=== PATIENT | female | born 1945 | race Caucasian/White ===

== ENCOUNTER 2017-03-01 13:16 | Inpatient (IN) ==
[2017-03-01] MEDS ORDERED: ASPIRIN PO STA (14:02)
[2017-03-01] MEDS ORDERED: NORCO-7.5 PO ONE (14:04)
--- NOTE | 2017-03-01 14:21 | Diag Imaging Result Doc PS360 ---
EXAM: CHEST-PORTABLE HISTORY: sob TECHNIQUE: Portable upright AP COMPARISON: None. FINDINGS: The lungs are well expanded. The heart is not enlarged. The vessels are not distended. No pneumonia. No pleural effusions identified. There is a granuloma in the mid right lung. IMPRESSION: Negative chest Electronically signed by Scott Su 03/01/2017 2:18 PM
[2017-03-01 14:34] LABS: MANUAL DIFF NEEDED? NO
[2017-03-01 14:38] LABS: BASO% 0.3 % (0.0-0.8); EOS# 0.39 X1000 (0.0-0.7); EOS% 5.5 % (0.0-10.0); HEMATOCRIT 37.7 % (37.0-47.0); HEMOGLOBIN 11.7 g/dL (12.0-16.0); LYMPH# 1.19 X1000 (1.2-3.4); LYMPH% 16.7 % (20.5-51.1); MCH 23.8 PG (27-31); MCV 76.8 FL (81-99); MPV 10.5 FL (7.4-10.4); NEUT% 70.5 % (42.2-75.2); PLT 277 X1000 (130-400); RBC 4.91 XMIL (4.2-5.4)
[2017-03-01 14:45] LABS: INR 1.06; PROTIME 11.2 Seconds (9.2-11.7); PTT 25.3 Seconds (22.0-36.0)
[2017-03-01 15:10] LABS: ALBUMIN 4.1 g/dL (3.5-5.0); CALCIUM 10.2 mg/dL (8.8-10.2); MAGNESIUM 1.6 mg/dL (1.5-2.7); POTASSIUM 3.2 mmol/L (3.5-5.1); TOTAL BILIRUBIN 0.38 mg/dL (0.20-1.00); TOTAL PROTEIN 7.2 g/dL (6.3-8.3)
[2017-03-01] MEDS ORDERED: ZOFRAN IV PRN (18:03)
[2017-03-01] MEDS ORDERED: HEPARIN 25,000 UNITS/D5W 25,000 UNIT/250 ML IV.SOLN IV SCH ×3 (18:03→23:15)
[2017-03-01] MEDS ORDERED: HEPARIN IV PRN (18:03)
[2017-03-01] MEDS ORDERED: HEPARIN IV ONE (18:15)
[2017-03-01] MEDS: NS 1,000 ML IV SCH (18:45)
[2017-03-01] MEDS: CARDIZEM CD PO SCH (20:52)
[2017-03-01] MEDS: ATIVAN PO SCH (20:52)
[2017-03-01] MEDS: LOPRESSOR PO SCH (20:53)
[2017-03-01 22:49] LABS: INR 1.04
[2017-03-01 22:56] LABS: PTT 44.3 Seconds (22.0-36.0)
[2017-03-02 04:24] LABS: MANUAL DIFF NEEDED? NO
[2017-03-02 04:27] LABS: BASO% 0.5 % (0.0-0.8); EOS# 0.38 X1000 (0.0-0.7); EOS% 6.1 % (0.0-10.0); HEMATOCRIT 34.4 % (37.0-47.0); HEMOGLOBIN 10.6 g/dL (12.0-16.0); LYMPH# 1.49 X1000 (1.2-3.4); MCH 23.9 PG (27-31); MCHC 30.8 g/dL (33-37); MCV 77.5 FL (81-99); MONO# 0.39 X1000 (0.11-0.59); MONO% 6.3 % (1.7-9.3); NEUT% 63.1 % (42.2-75.2); PLT 263 X1000 (130-400); RBC 4.44 XMIL (4.2-5.4)
[2017-03-02 04:46] LABS: ALBUMIN 3.6 g/dL (3.5-5.0); CALCIUM 9.2 mg/dL (8.8-10.2); MAGNESIUM 1.6 mg/dL (1.5-2.7); TOTAL BILIRUBIN 0.35 mg/dL (0.20-1.00); TOTAL PROTEIN 6.4 g/dL (6.3-8.3)
[2017-03-02] MEDS ORDERED: HEPARIN IV ONE (05:12)
--- NOTE | 2017-03-02 05:18 | EKG Report ---
Test Performed on : 03/01/2017 6:17:34 PM Test Reason : Chest Pain Blood Pressure : / mmHG Vent. Rate : 067 BPM Atrial Rate : 067 BPM P-R Int : 176 ms QRS Dur : 084 ms QT Int : 434 ms P-R-T Axes : 016 -07 -10 degrees QTc Int : 458 ms Normal sinus rhythm. Minimal voltage criteria for LVH, may be normal variant ST \T\ T wave abnormality, consider anterior ischemia Abnormal ECG No previous ECGs available Unconfirmed Result
[2017-03-02] MEDS: HEPARIN 25,000 UNITS/D5W 25,000 UNIT/250 ML IV.SOLN IV SCH ×3 (05:35→22:48)
[2017-03-02] MEDS: NS 1,000 ML IV SCH ×4 (05:42→22:25)
[2017-03-02] MEDS: PRILOSEC PO SCH (05:59)
--- NOTE | 2017-03-02 09:20 | Diag Imaging Result Doc PS360 ---
EXAM: CT ANGIOGRAM/AORTA W/RUNOFF HISTORY: left foot ischemia TECHNIQUE: CT angiogram of the abdominal aorta with runoff, with contrast, and reduced radiation dose applied. 3-D MIPS. COMMENT: There are no previous studies available for comparison. There is a large hiatal hernia. Some atelectasis or fibrosis is present in the left lower lobe. The liver is somewhat hypodense suggesting fatty change. The renal arteries are patent bilaterally. There is apparently a very small accessory renal artery on the left. There is slight dilatation of the infrarenal abdominal aorta to a maximum AP diameter of 2.5 cm. There is slight dilatation of the common iliacs with the right measuring almost 1.5 cm in diameter and the left over 13 mm. There is diverticulosis throughout the sigmoid colon without evidence of diverticulitis. No abnormal fluid collections are present and there is no evidence of bowel obstruction. There are spondylotic changes throughout the lumbar spine. There is moderate to severe spinal stenosis present at the L4-5 level. There may be bilateral foraminal stenosis at L5-S1. The superior mesenteric and celiac arteries are widely patent. The inferior mesenteric artery is patent. There is dilatation of the internal iliac artery on the right side to over 11 mm. This is probably due to the stenosis at its origin. The external iliac arteries are patent bilaterally. Some detail in the popliteal artery on the right is obscured by knee arthroplasty prosthesis. There is significant stenosis just above the left knee in the proximal popliteal artery. There is poor apparent runoff in the left calf beyond the tibioperoneal trunk and there is occlusion of the anterior tibial artery proximally. Considerable collateral flow is seen on the medial side of the proximal calf on the right. There is flow seen in three vessels to the mid calf with very poor runoff beyond this point. No contrast opacification is demonstrated to to any extent on the axial images and either posterior tibial artery. IMPRESSION: 1. Hiatal hernia. 2. Minimal abdominal aortic aneurysm. 3. 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 4. 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 5. Poor distal runoff in the cast particularly on the left. 6. Spinal stenosis at L4-5. Electronically signed by Montez Sorto 03/02/2017 9:17 AM
[2017-03-02] MEDS: HYDROXYZINE PO SCH (09:32)
[2017-03-02] MEDS: HYDROCHLOROTHIAZIDE PO SCH (09:32)
[2017-03-02] MEDS: CARDIZEM CD PO SCH ×2 (09:32→22:25)
[2017-03-02] MEDS: REQUIP PO SCH (09:32)
[2017-03-02] MEDS: LOPRESSOR PO SCH ×2 (09:32→22:25)
[2017-03-02] MEDS: ATIVAN PO SCH ×2 (09:32→22:25)
[2017-03-02] MEDS: PAXIL PO SCH (09:33)
[2017-03-02] MEDS: ZANAFLEX PO SCH (09:33)
--- NOTE | 2017-03-02 16:08 | ECHO REPORT ---
ORDER DATE: 03/01/2017 INDICATION: Left lower leg ischemia. Hypertension. Atrial fibrillation. FINDINGS: 1. Right atrium is mildly enlarged at 4.6 cm. 2. Mild tricuspid regurgitation. RV systolic pressure of 45. 3. Normal RV size and systolic function. 4. Mild pulmonic insufficiency. 5. Severe left atrial enlargement with a left atrial volume index of 40. 6. No mitral valve prolapse. Mild mitral regurgitation. 7. Normal LV size, end-diastolic dimension of 5.1. Normal wall thicknesses with a posterior and interventricular septal thickness 1 cm each. Normal LV systolic function. Calculated EF of 67% with normal wall motion. 8. The aortic valve opens well. It is trileaflet. No evidence of stenosis or insufficiency. 9. The aorta appears normal in visualized segments. 10. No pericardial effusion seen. cc: MD Josse Perales MD
[2017-03-02] MEDS: TYLENOL PO PRN (22:25)
[2017-03-03] MEDS: HEPARIN 25,000 UNITS/D5W 25,000 UNIT/250 ML IV.SOLN IV SCH (03:10)
[2017-03-03 04:06] LABS: MANUAL DIFF NEEDED? NO
[2017-03-03 04:08] LABS: BASO% 0.7 % (0.0-0.8); EOS# 0.48 X1000 (0.0-0.7); EOS% 8.2 % (0.0-10.0); HEMATOCRIT 30.5 % (37.0-47.0); HEMOGLOBIN 9.5 g/dL (12.0-16.0); LYMPH# 1.74 X1000 (1.2-3.4); LYMPH% 29.8 % (20.5-51.1); MCH 24.1 PG (27-31); MCHC 31.1 g/dL (33-37); MCV 77.4 FL (81-99); MONO# 0.45 X1000 (0.11-0.59); MONO% 7.7 % (1.7-9.3); MPV 9.6 FL (7.4-10.4); NEUT% 53.6 % (42.2-75.2); PLT 234 X1000 (130-400); RBC 3.94 XMIL (4.2-5.4)
[2017-03-03 04:38] LABS: CALCIUM 8.9 mg/dL (8.8-10.2)
[2017-03-03] MEDS: NS 1,000 ML IV SCH ×3 (05:41→23:00)
[2017-03-03] MEDS: PRILOSEC PO SCH (06:44)
[2017-03-03] MEDS: ULTRAM PO PRN ×2 (07:22)
[2017-03-03] MEDS ORDERED: HEPARIN ONE ×2 (08:28→08:36)
[2017-03-03] MEDS ORDERED: NS 2,000 ML ONE (08:29)
[2017-03-03] MEDS ORDERED: SENSORCAINE 0.25%/EPI 1:200,000 ONE (08:29)
[2017-03-03] MEDS ORDERED: NS 1,000 ML ONE (08:36)
[2017-03-03] MEDS ORDERED: KEFZOL 1 GM/D5W 1 GM/50 ML IVPB ONE (10:29)
[2017-03-03] MEDS ORDERED: DIPRIVAN 1% ONE (10:34)
[2017-03-03] MEDS ORDERED: ZEMURON ONE (11:05)
[2017-03-03] MEDS ORDERED: HEPARIN (DOSE) ONE (11:24)
[2017-03-03] MEDS ORDERED: CATHFLO IV ONE ×2 (11:45→12:00)
[2017-03-03 12:12] LABS: URINE MICRO REVIEW NEEDED? NO; URINE SOURCE CATH
[2017-03-03 12:21] LABS: BILIRUBIN URINE NEGATIVE (NEGATIVE); BLOOD URINE NEGATIVE (NEGATIVE); COLOR STRAW; GLUCOSE URINE NEGATIVE (NEGATIVE); LEUKOCYTES URINE NEGATIVE (NEGATIVE); NITRITE URINE NEGATIVE (NEGATIVE); PH URINE 6.5; PROTEIN URINE NEGATIVE (NEGATIVE); SP GRAVITY URINE 1.005; TURBIDITY URINE CLEAR (CLEAR); UR EPITHELIAL CELLS <10 /HPF (<10); URINE BACTERIA NEGATIVE /HPF; URINE RBC <10 /HPF (<10); URINE WBC <10 /HPF (<10); UROBILINOGEN URINE NORMAL (NORMAL)
[2017-03-03] MEDS ORDERED: FENTANYL ONE (12:31)
[2017-03-03] MEDS: CARDIZEM CD PO SCH ×2 (14:52→20:16)
[2017-03-03] MEDS: ATIVAN PO SCH ×2 (14:52→20:16)
[2017-03-03] MEDS: LOPRESSOR PO SCH ×2 (14:53→20:16)
[2017-03-03] MEDS: HYDROXYZINE PO SCH (14:55)
[2017-03-03] MEDS: HYDROCHLOROTHIAZIDE PO SCH (14:55)
[2017-03-03] MEDS: PAXIL PO SCH (14:55)
[2017-03-03] MEDS: REQUIP PO SCH (14:56)
[2017-03-03] MEDS: ZANAFLEX PO SCH (14:57)
[2017-03-03] MEDS: NORCO-7.5 PO PRN (19:34)
[2017-03-04] MEDS: NORCO-7.5 PO PRN (01:35)
[2017-03-04] MEDS: PRILOSEC PO SCH (06:31)
[2017-03-04 07:34] LABS: MANUAL DIFF NEEDED? NO
[2017-03-04 07:41] LABS: BASO% 0.4 % (0.0-0.8); EOS% 7.3 % (0.0-10.0); HEMATOCRIT 30.7 % (37.0-47.0); HEMOGLOBIN 9.3 g/dL (12.0-16.0); LYMPH# 1.06 X1000 (1.2-3.4); LYMPH% 19.3 % (20.5-51.1); MCH 23.8 PG (27-31); MCHC 30.3 g/dL (33-37); MCV 78.5 FL (81-99); MONO# 0.51 X1000 (0.11-0.59); MONO% 9.3 % (1.7-9.3); MPV 10.1 FL (7.4-10.4); NEUT% 63.7 % (42.2-75.2); PLT 226 X1000 (130-400); RBC 3.91 XMIL (4.2-5.4)
[2017-03-04] MEDS: LOPRESSOR PO SCH ×2 (08:09→21:20)
[2017-03-04] MEDS: CARDIZEM CD PO SCH ×2 (08:09→21:20)
[2017-03-04] MEDS: PAXIL PO SCH (08:09)
[2017-03-04] MEDS: ZANAFLEX PO SCH (08:09)
[2017-03-04] MEDS: HYDROCHLOROTHIAZIDE PO SCH (08:10)
[2017-03-04] MEDS: REQUIP PO SCH (08:10)
[2017-03-04] MEDS: ATIVAN PO SCH ×2 (08:10→21:20)
[2017-03-04] MEDS: HYDROXYZINE PO SCH (08:10)
[2017-03-04] MEDS: NS 1,000 ML IV SCH ×2 (08:46→18:18)
[2017-03-04] MEDS: VENTOLIN HFA INH PRN (21:42)
[2017-03-05] MEDS: ULTRAM PO PRN (00:55)
[2017-03-05] MEDS: TYLENOL PO PRN (02:50)
[2017-03-05] MEDS: PRILOSEC PO SCH (06:46)
[2017-03-05] MEDS: NS 1,000 ML IV SCH (06:48)
[2017-03-05 08:25] VITALS: BP 162/59
[2017-03-05] MEDS: ZANAFLEX PO SCH (08:43)
[2017-03-05] MEDS: ATIVAN PO SCH (08:43)
[2017-03-05] MEDS: CARDIZEM CD PO SCH (08:43)
[2017-03-05] MEDS: HYDROCHLOROTHIAZIDE PO SCH (08:43)
[2017-03-05] MEDS: REQUIP PO SCH (08:43)
[2017-03-05] MEDS: LOPRESSOR PO SCH (08:43)
[2017-03-05] MEDS: HYDROXYZINE PO SCH (08:43)
[2017-03-05] MEDS: PAXIL PO SCH (08:43)
[2017-03-05] MEDS ORDERED: PLAVIX PO SCH (09:00)
[2017-03-05] MEDS: VENTOLIN HFA INH PRN (10:50)
[2017-03-05] MEDS ORDERED: FLUZONE QUAD 2017-2018 SYRINGE IM ONE (14:40)
== END 2017-03-05 14:53 | disposition home or self-care (01) ==
LOC: ED 13:16 → EDIPHOLD 19:07 → 3N 03-02 00:51
PROVIDERS: ATTEND Emergency Medicine